=== PATIENT | male | born 1980 | race Caucasian/White ===

== ENCOUNTER 2021-01-18 20:05 | Emergency (ER) | payer OTHER ==
[2021-01-18 21:00] LABS: RED BLOOD COUNT 5.34 M/UL (4.20-5.50); WHITE BLOOD COUNT 9.8 K/UL (4.5-11.0)
[2021-01-18 21:17] LABS: BUN/CREATININE RATIO 14 (0-10)
[2021-01-18] MEDS ORDERED: BENTYL 10MG CAP10 MG PO (22:27)
== END 2021-01-18 22:44 | disposition home or self-care (01) ==
LOC: ER1 20:05
PROVIDERS: Family Medicine
DX: R10.12 Left upper quadrant pain (principal); R10.32 Left lower quadrant pain; R30.0 Dysuria; I10 Essential (primary) hypertension; Z90.49 Acquired absence of other specified parts of digestive tract
CPT/HCPCS: 71045; 80053; 81001; 83690; 85025; 93005; 99284; Q9967